=== PATIENT | female | born 1995 ===

== ENCOUNTER 2021-07-02 12:30 | Outpatient (RCR) | payer BC, SELFPAY ==
--- NOTE | 2021-06-12 15:44 | PTOPEVAL ---
Thank you for referring Arleen Pena to [facility] [place] The patient is scheduled to be seen for therapy? 2 x/week for 8 weeks. Please review, sign, date and return this plan of care NIKHIL. I agree with and certify that the following plan of care is medically necessary. 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 She has to provide lifting assistance. She is taking muscle relaxors at night. Subjective Information She c/o back and neck pain Query Text:As Reported By Patient/ which started in 2018. She Family received therapy in 2018, but had to stop due to difficulty attending therapy. She did not receive HEP. She reports limitations with sitting, walking, standing, performing ADL's and operations tech. Increased pain with reaching motion. She has increased pain sitting in the car. She is stiff in the morning. At least 1x/wk she will need physical assistance to get out of bed. Previous Treatments Previous Treatments For This Problem 2018 Pain Assessment Bilateral Neck Reported Pain Level 8 Pain Description Heavy,Radiating Pain Radiation Back Pain Frequency Chronic,Continuous Lowest Pain Intensity 3 Greatest Pain Intensity 10 Pain Aggravating Factors ADL's,Bending,Lifting, Prolonged Position,Sitting, Walking,Weight Bearing/ Standing Bilateral Lower Back Reported Pain Level 3 Pain Description Radiating,Tender on Palpation Pain Frequency Chronic,Continuous Lowest Pain Intensity 3 Greatest Pain Intensity 7 Pain Aggravating Factors ADL's,Bending,Exercise/ Activity,Lifting,Sitting, Walking,Weight Bearing/ Standing Cervical and Lumbar ROM Cervical ROM Cervical Flexion (0-60) 72:Active in Degrees Cervical Extension (0-70) 50:Active in Degrees Cervical Lateral Flexion R
--- NOTE | 2021-06-18 08:23 | PCPTNOTE ---
Patient did not show up for scheduled appointment this date. Called, unable to leave a message.
--- NOTE | 2021-06-24 11:16 | PCPTNOTE ---
Patient called & cancelled scheduled appointment this date due to patient stating she couldn't drive that long.
--- NOTE | 2021-07-02 15:42 | PTOPEVAL ---
Physical Therapy Discharge Note Thank you for referring Arleen Pena to [facility] [place].?Arleen has received 5 therapy visits with 2 missed visits to address her chronic pain. She has been provided a HEP to address her chronic symptoms. She has reached maximal potential with skilled therapy services at this time. Please review, sign, date and return this discharge summary NIKHIL. I agree with and certify that the following plan of care is medically necessary. 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 She has to provide lifting assistance. She c/o back and neck pain which started in 2018. She received therapy in 2018, but had to stop due to difficulty attending therapy. Subjective Information She is performing some of her Query Text:As Reported By Patient/ exercise, but not all of them. Family She reports improved ability to perform sitting, standing or walking. But does not know if it is any better or worse with therapy. She has increased pain sitting in the car for >1 hour. She continues to have greater stiffness in the morning. Pain Assessment Bilateral Neck Reported Pain Level 5 Pain Frequency Chronic,Continuous Lowest Pain Intensity 4 Greatest Pain Intensity 7 Bilateral Lower Back Reported Pain Level 0 Pain Frequency Continuous,Intermittent Lowest Pain Intensity 0 Greatest Pain Intensity 8 Cervical and Lumbar ROM Lumbar ROM Lumbar Flexion Active Floor:Hands to: Lateral Flexion lateral knee region:Active Hands to: Lumbar Comments full trunk motion in all directions with no c/o pain with motions. Cervical and Lumbar Muscle Testing Lumbar Strength Upper Abdominal Strength 4-Good- Lower Abdominal Strength 3+Fair+ Lower Extremity Muscle Strength Testing Hip Strength Right Hip Flexion Strength 4+ Good + Hip Extension Strength 4+ Good + Hip Abduction Strength 3+ Fair + Left Hip Flexion Strength 4 Good Hip Extension Strength 4+ Good + Hip Abduction S
== END 2021-07-03 09:14 | disposition home or self-care (01) ==
LOC: ANHPT 12:30
PROVIDERS: PCP Nurse Practitioner Family; Visit Provider Nurse Practitioner Family
DX: G89.29 Other chronic pain (principal)
CPT/HCPCS: 97014; 97110; 97140; 97162; 97530; G0283